=== PATIENT | female | born 1960 | race Caucasian/White ===

== ENCOUNTER 2019-07-08 11:05 | Emergency (ER) | payer BC, OTHER ==
[2019-07-08 12:26] VITALS: BP 125/88
--- NOTE | 2019-07-08 12:39 | UC ---
Upper Extremity HPI - HPI Summary HPI Summary: Pt presents with c/o left upper arm and shoulder, and left dorsal hand pain. Pt denies injury or trauma. Pt reports that she has been doing a different job at work and been lifting heavy objects. Pt states that the pain radiates from left shoulder "down my arm" to left hand. Ppt/ reports mild swelling to dorsal aspect of hand from 2-4 finger. - History of Current Complaint Stated Complaint: WC- LT HAND/WRIST COMPLAINT Time Seen by Provider: 07/08/19 11:56 Hx Obtained From: Patient ?: No Onset/Duration: Gradual Onset, Lasting Days, Still Present Severity Initially: Mild Severity Currently: Mild Pain Intensity: 0 Location Of Pain: Is Diffuse, Radiates To Character: Dull, Burning Aggravating Factor(s): Movement Alleviating Factor(s): Rest Associated Signs And Symptoms: Positive: Swelling - left hand dorsal aspect between fingers 2-4 Related History: Dominant Hand Right - Risk Factors Non-Orthopedic Risk Factor: Negative DVT Risk Factors: Negative Septic Arthritis Risk Factor: Negative Compartment Syndrome Risk Factors: Pain - Allergies/Home Medications Allergies/Adverse Reactions: Allergies Allergy/AdvReac Type Severity Reaction Status Date / Time Sulfa (Sulfonamide Allergy Swelling Verified 07/08/19 12:25 Antibiotics) Of Face,Lips,& Throat Home Medications: Home Medications Cholecalciferol (Vitamin D3) [Vitamin D3] 2,000 unit PO DAILY 05/08/19 [History Confirmed 07/08/19] Ibuprofen TAB* [Motrin TAB* 800 MG] 800 mg PO Q8H PRN #21 tab 07/08/19 [Rx] Oseltamivir CAP* [Tamiflu CAP*] 75 mg PO DAILY 07/08/19 [History Confirmed 07/07] predniSONE 10 mg TAB [Deltasone 10 MG TAB*] 30 mg PO DAILY #12 tab 07/08/19 [Rx] PMH/Surg Hx/FS Hx/Imm Hx Previously Healthy: Yes - Surgical History Surgical History: Yes Surgery Procedure, Year, and Place: breast- cysts - Family History Known Family History: Positive: Cardiac Disease - Social History Occupation: Employed Full-time Lives: With Family Alcohol Use: Occasionally Substance Use Type: None Smoking Status (MU): Never Smoked Tobacco Have You Smoked in the Last Year: No - Immunization History Vaccination Up to Date: Yes Review of Systems All Other Systems Reviewed And Are Negative: Yes Constitutional: Positive: Negative Skin: Positive: Negative Eyes: Positive: Negative ENT: Positive: Negative Respiratory: Positive: Negative Cardiovascular: Positive: Negative Gastrointestinal: Positive: Negative Genitourinary: Positive: Negative Motor: Positive: Negative Musculoskeletal: Positive: Myalgia Neurological/Mental Status: Positive: Negative Psychological: Positive: Negative Is Patient Immunocompromised?: No Physical Exam Triage Information Reviewed: Yes Appearance: Well-Appearing Vital Signs: Initial Vital Signs Temp 99.3 F 07/08/19 12:20 Pulse 80 07/08/19 12:20 Resp 18 07/08/19 12:20 BP 125/88 07/08/19 12:20 Pulse Ox 98 07/08/19 12:20 Vital Signs Reviewed: Yes Eye Exam: Normal ENT: Positive: Hearing grossly normal Dental Exam: Normal Neck exam: Normal Respiratory Exam: Normal Cardiovascular Exam: Normal Musculoskeletal: Positive: Edema @ - mild swelling and mild erythema to left hand, dorsal aspect between knuckle 2-4. Neurological Exam: Normal Psychological Exam: Normal Skin Exam: Other - mild erythema, dorsal aspect of left hand between knuckles 2- 4. Upper Extremity Course/Dx - Course Course Of Treatment: I discussed with the pt the possibility of got or shingles. Pt denies hx and stated pain began gradually soon after she began a new position at work. - Differential Dx/Diagnosis Differential Diagnosis/HQI/PQRI: Bursitis, Other - tendi Provider Diagnosis: Swelling of left hand, Left upper arm pain Discharge ED - Sign-Out/Discharge Documenting (check all that apply): Patient Departure All imaging exams completed and their final reports reviewed: No Studies - Discharge Plan Condition: Stable Disposition: HOME Prescriptions: Ibuprofen TAB* [Motrin TAB* 800 MG] 800 mg PO Q8H PRN #21 tab PRN Reason: Pain - Mild predniSONE 10 mg TAB [Deltasone 10 MG TAB*] 30 mg PO DAILY #12 tab Patient Education Materials: Tendinitis (ED), Swollen Joint (ED) Forms: *Work Release Referrals: Nathaniel Torres MD [Medical Doctor] - As Soon As Possible Josefa Castellanos NP [Primary Care Provider] - If Needed - Billing Disposition and Condition Condition: STABLE Disposition: Home
== END 2019-07-08 12:50 | disposition home or self-care (01) ==
LOC: UCCORT 11:05
DX: M79.89 Other specified soft tissue disorders (principal); M79.622 Pain in left upper arm; Z88.2 Allergy status to sulfonamides
CPT/HCPCS: 99212; G0463